=== PATIENT | female | born 1975 | race Caucasian/White ===

== ENCOUNTER 2018-02-26 07:17 | Emergency (ER) | payer OTHER | END 2018-02-26 08:38 | disposition home or self-care (01) | LOC: ER 07:17 | DX: F41.9 Anxiety disorder, unspecified (principal); F41.0 Panic disorder [episodic paroxysmal anxiety]; K21.9 Gastro-esophageal reflux disease without esophagitis; F17.200 Nicotine dependence, unspecified, uncomplicated | CPT/HCPCS: 99284 ==

== ENCOUNTER → 2019-04-11 | Outpatient (CLI) | payer OTHER ==
[2018-02-26 08:00] VITALS: BP 110/58
[~2019-04-11] MED LIST: ALPR0.5T PO; BARIUM SULFATE 340 GM SUSPENSION. PO ONE; BARIUM SULFATE 60% 355 ML SUSP PO ONE; BARIUM SULFATE 96% 397 GM ENEMA. PR ONE; METO10TA81 PO; PANT20TA2 PO
--- NOTE | 2019-04-11 09:46 | RAD ---
Double contrast upper GI with KUB, 04/11/2019: HISTORY: Hiatal hernia, reflux, vomiting The preliminary abdominal image demonstrates a nonspecific gas pattern. Surgical clips are present in the right upper quadrant. There is no evidence organomegaly. A 1.4 cm density projected over the right iliac crest is probably a benign bone island. The study was performed utilizing high density barium and gas-forming crystals followed by regular liquid barium. 2.8 minutes of fluoroscopy time was utilized. 17 static and dynamic fluoroscopic sequence is were recorded. The swallowing mechanism is intact. There is normal passage of the contrast through the cervical esophagus. There is a moderate sized hiatal hernia. The gastroesophageal junction is patulous with moderate intermittent reflux into the esophagus. The stomach is otherwise unremarkable. No duodenal abnormality is detected. IMPRESSION: Moderate sized hiatal hernia with moderate gastroesophageal reflux. Electronically signed by: Boo Mcneil MD (04/11/2019 9:43 AM) [facility]
== END | disposition home or self-care (01) ==
LOC: RAD 07:37
PROVIDERS: ATTEND Surgery
DX: K21.9 Gastro-esophageal reflux disease without esophagitis (principal); K44.9 Diaphragmatic hernia without obstruction or gangrene
CPT/HCPCS: 74241

== ENCOUNTER 2019-05-14 08:36 | Inpatient (IN) | payer OTHER ==
[~2019-05-14] VITALS: Ht 160 cm; Wt 72.0 kg
[2019-05-14] VITALS (10 sets, daily range): BP systolic 106–129; BP diastolic 72–87
[~2019-05-14 08:36] MED LIST changes: -BARIUM SULFATE 340 GM SUSPENSION. PO ONE; -BARIUM SULFATE 60% 355 ML SUSP PO ONE; -BARIUM SULFATE 96% 397 GM ENEMA. PR ONE; +BUSP10TA PO; +CLON1TAB PO; +DEXAMETHASONE SOD PHOS 4 MG/ML VIAL ONE; +DULO30CA2 PO; +FAMOTIDINE 20 MG/2 ML VIAL ONE; +HYDROmorphone 2 MG/ML VIAL IV PRN; +IV RINGERS,LACTATED 1000ML 1,000 ML IV SCH; +LIDOCAINE 2% PF 5 ML VIAL. ONE; +MIDAZOLAM HCL/PF 2 MG/2 ML VIAL. ONE; +ONDA4TAB7 PO; +ONDANSETRON PF 4 MG/2 ML VIAL. IV PRN; +ONDANSETRON PF 4 MG/2 ML VIAL. ONE; +PROPOFOL 20 ML IV ONE; +RANI150C PO; +ROCURONIUM 50 MG/5 ML VIAL. ONE; +fentaNYL PF VIAL 100 MCG/2 ML VIAL IV PRN; +fentaNYL PF VIAL 100 MCG/2 ML VIAL ONE
[2019-05-14] MEDS ORDERED: SURGICEL HEMOSTAT 4X8 EACH. ONE (08:57)
[2019-05-14] MEDS ORDERED: BUPIVAC MPF-EPI 0.5%-1:200000 30 ML VIAL. ONE (08:57)
[2019-05-14] MEDS ORDERED: ceFAZolin 2GM PREMIX 2 GM/50 ML BAG IV ONE (09:00)
[2019-05-14] MEDS ORDERED: SEVOFLURANE > 120 MINUTES. IH ONE (11:00)
[2019-05-14] MEDS ORDERED: fentaNYL PF VIAL 100 MCG/2 ML VIAL ONE ×2 (11:07→13:10)
[2019-05-14] MEDS ORDERED: ROCURONIUM 50 MG/5 ML VIAL. ONE (11:17)
[2019-05-14] MEDS ORDERED: KETOROLAC 30 MG/ML INJ FOR OR. INJ ONE (11:52)
[2019-05-14] MEDS ORDERED: NEOSTIGMINE METHYLSULFATE 5 MG/5 ML SYRINGE. ONE (12:32)
[2019-05-14] MEDS ORDERED: GLYCOPYRROLATE 1 MG/5 ML VIAL. ONE (12:32)
[2019-05-14] MEDS: IV NORMAL SALINE 1000ML BAG 1,000 ML IV SCH (12:50)
[2019-05-14] MEDS ORDERED: NALOXONE 0.4 MG/ML VIAL. IV PRN (13:00)
[2019-05-14] MEDS ORDERED: PROCHLORPERAZINE 10 MG/2 ML VIAL. IV PRN (13:00)
[2019-05-14] MEDS ORDERED: 0.9 % SODIUM CHLORIDE 10 ML DISP.SYRIN. IV PRN (13:00)
[2019-05-14] MEDS ORDERED: ONDANSETRON PF 4 MG/2 ML VIAL. IV PRN (13:00)
[2019-05-14] MEDS ORDERED: HYDROmorphone 2 MG/ML VIAL IV PRN (13:00)
--- NOTE | 2019-05-14 13:00 | PDOC4 ---
Operative Note Operative Note Operative Note Preoperative Diagnosis: Hiatal hernia with gastroesophageal reflux disease Postoperative Diagnosis: Same Procedure: Laparoscopic repair of hiatal hernia with Lety fundoplication Surgeon: Dani Fontaine.: Dr. Manzanares Anesthesia: Gen. Estimated Blood Loss: 20 mL Specimen: None Drains: None Complications: None Indications: The patient is a 43-year-old female who is referred following the GI evaluation for test esophageal reflux disease. Evaluation identified a hiatal hernia with symptomatic reflux disease poorly responsive to medical treat ment. She was referred for surgical repair. The risks of surgery were discussed which include bleeding, infection, recurrent herniation, gastric or esophageal perforation, visceral injury, recurrent reflux, gas bloat syndrome, dysphasia, potential need for additional surgeries or procedures. She understands and would like to proceed. Description: The patient was taken to the operating room and placed supine on the operating table. General anesthesia was performed. The patient was then placed in lithotomy. The abdomen was prepped with ChloraPrep and draped in a standard surgical fashion. A small incision was made superior to and to the patient's left of the umbilicus through which a visualized 5 mm trocar was inserted. A pneumoperitoneum was then created and the laparoscope was introduced. In the right lateral abdomen a 12 mm trocar was inserted through which a soft fan retractor was used to elevate the left lobe of the liver. In the right upper quadrant a 5 mm trocar was inserted. In the left upper quadrant an 11 mm trocar was inserted while in the left lateral abdomen a 5 mm trocar was inserted. Attention was then directed to the diaphragmatic hiatus. There was a relatively small hiatal hernia present. The pars flacida was opened with the harmonic scalpel. There were some crossing vessels that were clipped and divided. The flacida was divided down to the right nando. The right nando was bluntly from the border of the esophagus. Many of the attachments in this location and the mediastinum were divided with a [place] scalpel. The dissection then continued anteriorly and then to the left of the esophagus. Additional attachments were taken down mobilizing the distal portion of the esophagus. The gastrocolic omentum was then opened with the Harmonic scalpel in the upper portion of the greater curvature. We then freed up the upper part of the greater curvature and fundus using the harmonic scalpel. Large blood vessels were doubly clipped and divided. The dissection continued all the way back up to the left nando and any remaining splenic attachments were also mobilized. The esophagus was then freed up posteriorly and a aleksandar drain was then placed around the esophagus at the GE junction. Clips were applied holding the Aleksandar in place. With retraction on the [place] we were able to continue freeing up any remaining sac attachments particularly in the posterior location. At this point the GE junction was well within the abdominal cavity. The left and right nando were then reapproximated with interrupted 2-0 silk sutures using the Endo Stitch device. Stitches were applied both anteriorly and posteriorly allowing for closure of the hernia defect. The fundus was then wrapped around in a 360� fashion creating the fundoplication. A shoeshine maneuver was used to ensure no twists or kinks. An initial 2-0 Ethibond suture was used securing the fundic lips together. Another suture was placed superior to this which incorporated a small bite of the anterior esophagus. An additional suture was t hen placed inferiorly completing the fundoplication. At this point hemostasis was good, the hernia was well repaired, and the fundoplication was intact with a nice orientation. The 11 and 12 mm trochars were then removed and the fascia closed with 0 Vicryl using an Endo Close. The remaining ports were removed and the pneumoperitoneum was relieved. Skin at all incisions was closed with 4-0 Monocryl. Steri-Strips and dressings were applied. The patient tolerated the procedure well. SLOAN DOW MD May 14, 2019 13:00
[2019-05-14] MEDS ORDERED: PROCHLORPERAZINE 10 MG/2 ML VIAL. ONE (13:10)
[2019-05-14] MEDS: fentaNYL PF VIAL 100 MCG/2 ML VIAL IV PRN ×2 (13:15→13:25)
[2019-05-14] MEDS ORDERED: MORPHINE SULFATE 2 MG/ML VIAL. ONE (13:35)
[2019-05-14] MEDS: MORPHINE SULFATE 2 MG/ML VIAL. IV PRN ×2 (13:40→13:51)
[2019-05-14] MEDS ORDERED: HYDROmorphone 2 MG/ML VIAL ONE (14:05)
[2019-05-14] MEDS ORDERED: CLON0.5T PO (14:41)
--- NOTE | 2019-05-14 15:00 | NUR ---
pt arrived to unit at 1425 via bed from PACU in stable condition. pt is oriented but drowsy. pt has family at bedside and call light within reach. pt is on 3LNC and stating her pain is 8/10. pt dressings have scant shadowing on them. received report from CANDE Klein in PACU. will continue to monitor.
[2019-05-14] MEDS: NICOTINE 21MG PATCH. TD SCH (15:21)
[2019-05-14] MEDS: IV 1/2 NORMAL SALINE 1,000 ML IV SCH (15:22)
[2019-05-14] MEDS: HYDROmorphone 2 MG/ML VIAL IV PRN ×2 (16:48→21:52)
[2019-05-15] MEDS: HYDROmorphone 2 MG/ML VIAL IV PRN ×5 (00:53→15:12)
[2019-05-15] MEDS: IV 1/2 NORMAL SALINE 1,000 ML IV SCH ×3 (00:54→21:13)
--- NOTE | 2019-05-15 01:10 | NUR ---
Report rcvd. from CANDE Coffey and assumed care of patient at this time. Patient resting in bed, will continue to monitor.
[2019-05-15 03:00] VITALS: BP 99/69
[2019-05-15 07:00] VITALS: BP 115/63
[2019-05-15] MEDS ORDERED: HYDROcodon/APAP 7.5/325MG ORAL 15 ML SOLUTION PO PRN (07:30)
[2019-05-15] MEDS ORDERED: clonazePAM 0.5 MG TABLET PO PRN (07:30)
[2019-05-15] MEDS: NICOTINE 21MG PATCH. TD SCH (08:28)
[2019-05-15] MEDS: busPIRone 5 MG TABLET. PO SCH ×2 (08:28→21:10)
[2019-05-15] MEDS: METOCLOPRAMIDE 10 MG TABLET. PO SCH ×2 (08:29→18:48)
[2019-05-15] MEDS: clonazePAM 0.5 MG TABLET PO SCH ×2 (08:29→21:10)
[2019-05-15] MEDS: DULoxetine HCL 30 MG CAPSULE.DR PO SCH (08:29)
[2019-05-15 11:00] VITALS: BP 127/79
--- NOTE | 2019-05-15 11:22 | NUR ---
SS following for discharge planning. SS reviewed pt chart. Pt is from home with spouse and is currently on room air. No discharge needs noted at this time. SS will continue to follow for discharge planning.
--- NOTE | 2019-05-15 12:06 | PDOC ---
MARY MACKEY APRN 05/15/19 1206: SURGICAL PROGRESS NOTE Subjective incisional pain no reflux noted soda at bedside--explained to avoid carbonated beverages Vital Signs Vital Signs Date Time Temp Pulse Resp B/P (MAP) Pulse Ox O2 Delivery O2 Flow Rate FiO2 05/15/19 11:57 Room Air 05/15/19 07:00 97.9 56 16 115/63 (80) 97 97.9 05/14/19 14:32 3.0 I&O Intake and Output 05/15/19 07:00 Intake Total 50 ml Output Total 220 ml Balance -170 ml Intake Oral 50 ml Output Urine Total 200 ml Estimated Blood Loss 20 ml # Voids 5 General: Alert, Oriented X3, Cooperative Abdomen: Soft, Other (lap sites c/d/i, no erythema, incisional TTP) Assessment/Plan s/p william oral meds clears today avoid carbonated drinks SLOAN DOW MD 05/15/19 1518: SURGICAL PROGRESS NOTE Problem List Agree with above AMRY MACKEY APRN May 15, 2019 12:06 SLOAN DOW MD May 15, 2019 15:18
[2019-05-15] MEDS: HYDROcodon/APAP 7.5/325MG ORAL 15 ML SOLUTION PO PRN ×3 (12:47→23:14)
[2019-05-15] MEDS: IV NORMAL SALINE 1000ML BAG 1,000 ML IV SCH (12:50)
[2019-05-15 15:00] VITALS: BP 103/64
[2019-05-15 19:00] VITALS: BP 121/76
[2019-05-15 23:00] VITALS: BP 139/84
[2019-05-16 03:00] VITALS: BP 123/84
[2019-05-16] MEDS: HYDROcodon/APAP 7.5/325MG ORAL 15 ML SOLUTION PO PRN ×5 (03:21→21:10)
[2019-05-16] MEDS: IV 1/2 NORMAL SALINE 1,000 ML IV SCH ×3 (06:09→23:49)
[2019-05-16 07:00] VITALS: BP 117/84
[2019-05-16] MEDS: NICOTINE 21MG PATCH. TD SCH (08:30)
[2019-05-16] MEDS: clonazePAM 0.5 MG TABLET PO SCH ×2 (08:30→21:08)
[2019-05-16] MEDS: DULoxetine HCL 30 MG CAPSULE.DR PO SCH (08:30)
[2019-05-16] MEDS: busPIRone 5 MG TABLET. PO SCH ×2 (08:30→21:08)
[2019-05-16] MEDS: METOCLOPRAMIDE 10 MG TABLET. PO SCH ×2 (08:30→15:38)
[2019-05-16] MEDS: IV NORMAL SALINE 1000ML BAG 1,000 ML IV SCH (09:31)
[2019-05-16 11:00] VITALS: BP 113/66
--- NOTE | 2019-05-16 11:23 | NUR ---
Patient c/o cold chills and cold sweats, T 99.9, will continue to monitor.
--- NOTE | 2019-05-16 14:02 | PDOC ---
MARY MACKEY RUBBER TIRE CURER 05/16/19 1402: SURGICAL PROGRESS NOTE Subjective reports chills this afternoon temps 99 feels achy + bloating, no reflux Vital Signs Vital Signs Date Time Temp Pulse Resp B/P (MAP) Pulse Ox O2 Delivery O2 Flow Rate FiO2 05/16/19 13:27 94 Room Air 05/16/19 11:00 99.4 94 17 113/66 (82) 99.4 I&O Intake and Output 05/16/19 07:00 Intake Total 2980 ml Balance 2980 ml Intake Oral 580 ml IV Total 1200 ml Other 1200 ml # Voids 5 General: Alert, Oriented X3, Cooperative, No acute distress Abdomen: Soft, Other (lap sites c/d/i, no erythema ) Assessment/Plan s/p william advance to full liquids IS, increase walking monitor today SLOAN DOW MD 05/16/19 1711: SURGICAL PROGRESS NOTE Assessment/Plan Agree with above, DC tomorrow MARY MACKEY RUBBER TIRE CURER May 16, 2019 14:02 SLOAN DOW MD May 16, 2019 17:19
[2019-05-16 15:00] VITALS: BP 122/83
[2019-05-16 19:00] VITALS: BP 106/70
[2019-05-16 23:00] VITALS: BP 111/66
[2019-05-17] MEDS: HYDROcodon/APAP 7.5/325MG ORAL 15 ML SOLUTION PO PRN ×2 (01:55→07:15)
[2019-05-17 03:00] VITALS: BP 131/86
[2019-05-17] MEDS: METOCLOPRAMIDE 10 MG TABLET. PO SCH (07:15)
[2019-05-17 07:33] VITALS: BP 119/89
--- NOTE | 2019-05-17 08:19 | PDOC ---
MARY MACKEY HR MANAGER 05/17/19 0819: SURGICAL PROGRESS NOTE Subjective feels better no further chills some shoulder pain tolerating full liquids no reflux Vital Signs Vital Signs Date Time Temp Pulse Resp B/P (MAP) Pulse Ox O2 Delivery O2 Flow Rate FiO2 05/17/19 07:15 Room Air 05/17/19 03:00 99.8 95 16 131/86 (101) 93 99.8 I&O Intake and Output 05/17/19 06:59 Intake Total 3500 ml Balance 3500 ml Intake Oral 1100 ml IV Total 1200 ml Other 1200 ml # Voids 8 General: Alert, Oriented X3, Cooperative, No acute distress Abdomen: Soft, Other (lap sites c.d.i, no erythema ) Assessment/Plan s/p william dc home SERA VARGAS MD 05/17/19 1005: SURGICAL PROGRESS NOTE Assessment/Plan Agree with Ronen's assessment and plan MARY MACKEY HR MANAGER May 17, 2019 08:19 SERA VARGAS MD May 17, 2019 10:05
[2019-05-17] MEDS ORDERED: HYDR15SO6 PO (08:22)
--- NOTE | 2019-05-17 08:23 | DISCH ---
DISCHARGE INSTRUCTIONS Condition on Discharge Condition on Discharge: Stable Activity After Discharge Activity Instructions for Disc: Activity as tolerated Other activity instructions: ok to shower, no tub baths Lifting Instructions after Dis: No heavy lifting (20 lbs), No pulling or pushing Driving Instructions after Dis: Do not drive Diet after Discharge Diet after Discharge: Full Liquid Wound Incision Care Wound/Incision Care: May get incision wet, No wound care needed Contacting the after DC Call your doctor for: Concerns you may have Follow-Up Follow up with: Dr Louise 2 weeks, call to schedule [phone] MARY MACKEY APRN May 17, 2019 08:23
--- NOTE | 2019-05-17 08:26 | PDOC3 ---
Discharge Summary Visit Information Date of Admission: May 14, 2019 Date of Discharge: May 17, 2019 Admitting Diagnosis: Hiatal hernia with gastroesophageal reflux disease Final Diagnosis Hiatal hernia with gastroesophageal reflux disease Brief Hospital Course Allergies Allergies Coded Allergies Type Severity Reaction Last Updated Verified No Known Drug Allergies 05/14/19 No Vital Signs Vital Signs Date Time Temp Pulse Resp B/P (MAP) Pulse Ox O2 Delivery O2 Flow Rate FiO2 05/17/19 07:15 Room Air 05/17/19 03:00 99.8 95 16 131/86 (101) 93 99.8 Brief Hospital Course Ms. Degroot is a 43 old female who underwent Laparoscopic repair of hiatal hernia with Lety fundoplication. Postoperatively tolerating diet, pain managed. Urinating and ambulating well. Ready for discharge home Discharge Information Condition at Discharge: Stable Follow Up: Weeks (2) Disposition/Orders: D/C to Home Scheduled Buspirone Hcl (Buspirone Hcl) 10 Mg Tablet, 15 MG PO BID for ANXIETY, (Reported) Entered as Reported by: FRANCY ARGUETA on 05/12/191411 Last Taken: Unknown Dose on 05/14/19299 Last Action: Continued on 05/15/19719 by SLOAN DOW Clonazepam (Klonopin) 1 Mg Tablet, 0.5 MG PO BID for ANXIEY, (Reported) Entered as Reported by: FRANCY ARGUETA on 05/12/191413 Last Taken: Unknown Dose on 05/13/19299 Last Action: Continued on 05/15/19719 by SLOAN DOW Duloxetine Hcl (Cymbalta) 30 Mg Capsule.dr, 120 MG PO DAILY for DEPRESSION, (Reported) Entered as Reported by: FRANCY ARGUETA on 05/12/191411 Last Taken: Unknown Dose on 05/14/19299 Last Action: Continued on 05/15/19719 by SLOAN DOW Metoclopramide Hcl (Reglan) 10 Mg Tablet, 10 TAB PO BID for GASTROPARESIS, #90 (Reported) Entered as Reported by: JOAQUÍN KHAN on 02/26/18 0733 Last Taken: Unknown Dose on 05/13/19 Last Action: Continued on 05/15/19719 by SLOAN DOW Scheduled PRN Clonazepam (Klonopin) 0.5 Mg Tablet, 0.5 MG PO PRN 1X PRN for ANXIETY / AGITATION, (Reported) Entered as Reported by: ANTOINETTE IVORY RN on 05/14/19 1441 Last Taken: UNKNOWN on Unknown Date & Time Last Action: Continued on 719 by SLOAN DOW Hydrocodone Bit/Acetaminophen (Hydrocodone-Apap 7.5-325/15 Soln ) 15 Ml Solut ion, 10 ML PO PRN Q4HRS PRN for MODERATE PAIN, #300 Ref 0 Prescribed by: Mary Hardwick on 05/17/19 0822 Discontinued Medications Ondansetron Hcl (Zofran) 4 Mg Tablet, 4 MG PO BID PRN for NAUSEA/VOMITING, (Reported) Entered as Reported by: FRANCY ARGUETA on 05/12/19 1413 Last Taken: Unknown Dose on 05/13/19 Last Action: HELD on 05/15/19719 by SLOAN DOW Pantoprazole Sodium (Protonix) 20 Mg Tablet.dr, 40 MG PO BID for GERD, #30 (Reported) Entered as Reported by: JOAQUÍN KHAN on 02/26/18 0733 Last Taken: Unknown Dose on 05/14/19 0300 Last Action: HELD on 05/15/19719 by SLOAN DOW Ranitidine Hcl (Ranitidine Hcl) 150 Mg Capsule, 300 MG PO BID for GERD, (Reported) Entered as Reported by: FRANCY ARGUETA on 05/12/19 1414 Last Taken: Unknown Dose on 05/14/19 0300 Last Action: HELD on 05/15/19719 by MARY LYNN APRN May 17, 2019 08:26
[2019-05-17] MEDS: clonazePAM 0.5 MG TABLET PO SCH (08:29)
[2019-05-17] MEDS: NICOTINE 21MG PATCH. TD SCH (08:30)
[2019-05-17] MEDS: busPIRone 5 MG TABLET. PO SCH (08:30)
[2019-05-17] MEDS: DULoxetine HCL 30 MG CAPSULE.DR PO SCH (09:02)
--- NOTE | 2019-05-17 09:42 | NUR ---
Pt. discharged to home with Rx, verbalized understanding of discharge instructions. Abd [facility].
== END 2019-05-17 09:37 | disposition home or self-care (01) | DRG 328 ==
LOC: SURG 08:36 → 4 NORTH 13:15
PROVIDERS: ADMIT Surgery; ATTEND Surgery
PROC: 0BQT4ZZ Repair Diaphragm, Percutaneous Endoscopic Approach (ICD-10-PCS; 2019-05-14)
PROC: 0DV44ZZ Restriction of Esophagogastric Junction, Percutaneous Endoscopic Approach (ICD-10-PCS; principal; 2019-05-14 10:00)
DX: K44.9 Diaphragmatic hernia without obstruction or gangrene (principal); K21.9 Gastro-esophageal reflux disease without esophagitis; Z79.899 Other long term (current) drug therapy
CPT/HCPCS: A7015; G0238; J0696; J0780; J1100; J1170; J1885; J2001; J2060; J2250; J2270; J2405; J2704; J2710; J3010; J3490; J7030; J8597